=== PATIENT | male | born 1965 | race Caucasian/White ===

== ENCOUNTER 2024-01-18 09:15 | Outpatient (OUT) | payer OTHER, SELFPAY ==
[2024-01-18 10:04] LABS: Alanine Aminotransferase 57 U/L (16-63); Albumin Globulin Ratio 1.3; Albumin Level 3.9 g/dL (3.4-5.0); Alkaline Phosphatase 83 U/L (46-116); Aspartate Amino Transferase 32 U/L (15-37); BUN Creatinine Ratio 13.6; Bilirubin Total 0.7 mg/dL (0.2-1.0); Calcium 9.4 mg/dL (8.5-10.1); Carbon Dioxide 27.2 mmol/L (21.0-32.0); Chloride 104 mmol/L (98-107); Chol HDL Ratio 4.2; Cholesterol 168 mg/dL (<=200); Estimated GFR (African America >60 (>=60); Estimated GFR (Non-African Ame >60 (>=60); Globulin 3.1 g/dL; Glucose 97 mg/dL (74-106); HDL Cholesterol 40 mg/dL (40-60); Potassium 4.2 mmol/L (3.5-5.1); Sodium 141 mmol/L (136-145); Triglycerides 219 mg/dL (<=150); VLDL CHOLESTEROL 43.8 mg/dL
[2024-01-18 10:16] LABS: Prostate Specific Antigen Scrn 1.34 ng/mL (<=4.00)
== END 2024-01-18 09:16 | disposition home or self-care (01) ==
LOC: LAB 09:16
PROVIDERS: PCP Family Medicine; Visit Provider Family Medicine
DX: E78.5 Hyperlipidemia, unspecified (principal); Z12.5 Encounter for screening for malignant neoplasm of prostate
CPT/HCPCS: 36415; 80053; 80061; G0103

== ENCOUNTER 2024-02-01 07:51 | Outpatient (OUT) | payer OTHER, SELFPAY ==
--- NOTE | 2024-02-01 08:32 | CT_ITS ---
The [address] [address] Patient Name: PAT CASTRO MRN: [id number] date: 1965 Sex: M Assigned Patient Location: CT Current Patient Location: Accession/Order Number: [id number] Exam Date: 02/01/2024 08:18 Report Date: 02/02/2024 09:29 At the request of: JOI SANCHEZ Procedure: CT soft tissue neck w con CT soft tissue neck w con, 02/01/2024 8:18 AM EDT INDICATION: Mass Rt side r22.1 COMPARISON: There is no appropriate prior study for comparison. TECHNIQUE: CT imaging of the neck were acquired with contrast. Supplemental 2D reformatted images were generated and reviewed as needed. Dose reduction techniques were achieved by using automated exposure control and/or adjustment of mA and/or kV according to patient size and/or use of iterative reconstruction technique. FINDINGS: No abnormality of the base of skull is noted. The nasopharynx, oropharynx, hypopharynx and oral cavity are unremarkable. The parotids, submandibular glands are unremarkable. The larynx is unremarkable. No abnormality of paraglottic fat is noted. There is no lymph node enlargement by size criteria. No retropharyngeal lymph node is noted. Subcutaneous calcified lesion under the marker measuring approximately 4.4 x 8.1 mm is noted. The thyroid gland is homogeneous. The visualized portions of lungs are unremarkable. There is no suspicious osteolytic or osteoblastic lesion. There are multilevel degenerative changes of cervical spine. CT/CT soft tissue neck w con IMPRESSION: Small calcified subcutaneous lesion under the marker is most likely consistent with a calcified epidermoid cyst versus a calcified lymph node. Electronically authenticated by: ALONDRA DIAL Date: 02/02/2024 09:29
== END 2024-02-01 07:52 | disposition home or self-care (01) ==
LOC: CT 07:52
PROVIDERS: PCP Family Medicine; Visit Provider Family Medicine
DX: R22.1 Localized swelling, mass and lump, neck (principal)
CPT/HCPCS: 70491; Q9967

== ENCOUNTER 2024-03-24 12:21 | Day surgery (SDC) | payer OTHER, SELFPAY ==
--- NOTE | 2024-03-24 | OP_ITS ---
OPERATION DATE: 03/24/2024 SURGEON: Cathryn Ayon M.D. PREOPERATIVE DIAGNOSIS: Right neck mass. POSTOPERATIVE DIAGNOSIS: Right neck mass. PROCEDURE: Removal of right neck mass. ANESTHESIA: General endotracheal. COMPLICATIONS: None. FINDINGS: A 1.5 cm calcified cystic mass of the right mastoid tip. INDICATIONS: This 58-year-old man presented with a right neck mass, suspicious for a pilomatricoma. PROCEDURE: Patient identified in the holding area and taken back to the OR where he was placed in the supine position. After induction of general endotracheal anesthesia, the right neck was prepped and draped in a sterile fashion. A 3 cm elliptical incision was made following relaxed skin lines of tension around the mass and dissection was carried out sharply and with electrocautery, around the mass, down to the level of the sternocleidomastoid muscle. The mass was then removed in its entirety along with an ellipse of skin. Hemostasis was achieved with suction Bovie and the incision was then closed with a deep layer of interrupted 4-0 Vicryl sutures and a running 5-0 nylon stitch. Antibiotic ointment was placed over the incision and the patient was awakened and taken to the recovery room in good condition. QUIANA
--- OUTSIDE RECORDS SUMMARY | 2024-03-24 12:24 | XMS_ITS | CCD ---
Author Organization [facility] Inform ion Partnership [facility] Care Team Providers Care Cigar Making Supervisor Name Role Phone REY SOTELO Attending Unavailable REY SOTELO Admitting Unavailable LAURA, DR MARNIE Chambers Primary Care Unavailable LAURA, DR MARNIE Chambers Primary Care Unavailable LAURA, DR MARNIE Chambers Admitting Unavailable LAURA, DR MARNIE Chambers Attending Unavailable LAURA, DR MARNIE Chambers Consulting Unavailable LAURA, DR MARNIE Chambers Primary Care Unavailable REY SOTELO Attending Unavailable REY SOTELO Admitting Unavailable DON GALLO Consulting Unavailable John Cash Consulting Unavailable STACI KYLE Attending Unavailable MARNIE BURDEN Unavailable Allergies Allergy Classification Reported Allergen(s) Allergy Type Date of Onset Reaction(s) Facility (1 source) cefTRIAXone Drug Allergy 6 [facility] (2 sources) Iodine Drug Allergy 6 rash [facility] (1 source) FLUoxetine Drug Allergy 4 Comment:[facility] Medications Current Medications Medication Drug Class(es) Dates Sig (Normalized) Sig (Original) fenofibrate 145 mg oral tablet (1 source) Peroxisome Proliferator Receptor alpha Agonist Start: 01-14-2024 take 145 mg by mouth once daily Fenofibrate Nanocrystallized Active 145 MG PO Daily January 14, 2024 12:00am simvastatin 20 mg oral tablet (1 source) HMG-CoA Reductase Inhibitor Start: 01-13-2024 take 1 tablet by mouth once daily Simvastatin Active 20 MG PO Daily January 13, 2024 12:00am FreeTextSig: TAKE 1 TABLET DAILY; Note: Source Status: Start; Refills: 3; Qty: 90 Tablet; Provider: Laura Dye ( ) 24 hr venlafaxine 75 mg extended release oral capsule (1 source) Serotonin and Norepinephrine Reuptake Inhibitor Start: 01-13-2024 take 1 capsule by mouth once daily Venlafaxine Active 75 MG PO Daily January 13, 2024 12:00am FreeTextSig: TAKE 1 CAPSULE BY MOUTH EVERY DAY; Note: Source Status: Start; Refills: 17; Qty: 21 Capsule; Provider: Laura Dye ( ) Completed/Discontinued Medications Medication Drug Class(es) Dates Sig (Normalized) Sig (Original) aspirin 81 mg delayed release oral tablet (1 source) Platelet Aggregation Inhibitor, Nonsteroidal Anti-inflammatory Drug Start: 01-13-2024 End: 01-14-2024 Aspirin (Adult Low Dose Aspirin) 81 mg tablet,delayed release (DR/EC) Discontinued 81 MG PO Daily January 13, 2024 12:00am January 14, 2024 2:39pm hyoscyamine sulfate 0.125 mg oral tablet (1 source) Start: 01-13-2024 End: 01-14-2024 take 1 tablet by mouth every four hours as needed Hyoscyamine Sulfate Discontinued 1 TAB PO Every 4 hours January 13, 2024 12:00am January 14, 2024 2:40pm FreeTextSi tablet as needed Orally every 4 hrs; Note: Source Status: Start; Refills: 0; Provider: Laura Chambers meloxicam 15 mg oral tablet (2 sources) Nonsteroidal Anti-inflammatory Drug Start: 01-13-2024 End: 01-14-2024 take 1 tablet by mouth once daily Meloxicam Discontinued 15 MG PO Daily January 14, 2024 2:40pm January 14, 2024 2:57pm FreeTextSig: TAKE 1 TABLET BY MOUTH EVERY DAY; Note: Source Status: Start; Refills: 4; Qty: 21 Tablet; Provider: Laura Dye ( ) Problems Active Problems Problem Classification Problem Date Documented Da te Episodic/Chronic Disorders of lipid metabolism (2 sources) Hyperlipidemia; Translations: [Hyperlipidemia, unspecified] 01-14-2024 Chronic Other screening for suspected conditions (not mental disorders or infectious disease) (3 sources) Encounter for screening for malignant neoplasm of prostate; Translations: [Patient encounter status] Onset: 03-01-2022 01-14-2024 Episodic Other skin disorders (1 source) Mass of neck; Translations: [Localized swelling, mass and lump, neck] 01-14-2024 Episodic Other skin disorders (1 source) Localized swelling, mass and lump, neck; Translations: [Swelling, mass, or lump in head and neck] 01-14-2024 Episodic Past or Other Problems Problem Classification Problem Date Documented Da te Episodic/Chronic Diseases of mouth; excluding dental (1 source) Sialoadenitis, unspecified; Translations: [SIALOADENITIS UNSPECIFIED] Onset: 10-02-2021 Episodic Other skin disorders (3 sources) Localized swelling, mass and lump, head; Translations: [LOCALIZED SWELLING MASS AND LUMP HEAD] Onset: 09-27-2021 Episodic Residual codes; unclassified (4 sources) Procedure and treatment not carried out due to patient leaving prior to being seen by health care provider; Translations: [PROC AND TX NOT CARRIED OUT PT LEAVE] Onset: 09-27-2021 Episodic Results Test Name Value Interpretation Reference Range Facil ity CBC AUTO DIFFon 02-23-2022 BASO # 0.1 103/ul Normal 0.0-0.1 [facility] Comment on above: Performed By: #### C BC #### [facility] [address] [place] [address] Dr. Sara Franco Basophils/100 WBC (Bld) 1.0 % Normal 0.2-2.0 [facility] Comment on above: Performed By: #### C BC #### [facility] [address] [place] [address] Dr. Sara Franco EO # 0.1 103/ul Normal 0.0-0.7 [facility] Comment on above: Performed By: #### C BC #### [facility] [address] [place] [address] Dr. Sara Franco Eosinophils/100 WBC (Bld) 2.0 % Normal 0.9-7.0 [facility] Comment on above: Performed By: #### C BC #### [facility] [address] [place] [address] Dr. Sara Franco Erythrocyte distribution width (RBC) [Ratio] 13.5 % Normal 11.0-15.0 [facility] Comment on above: Performed By: #### C BC #### [facility] [address] [place] [address] Dr. Sara Franco Hematocrit (Bld) [Volume fraction] 45.7 % Normal 42.0-54.0 [facility] Comment on above: Performed By: #### C BC #### [facility] [address] [place] [address] Dr. Sara Franco Hemoglobin (Bld) [Mass/Vol] 15.4 g/dL Normal 14.0-18.0 [facility] Comment on above: Performed By: #### C BC #### [facility] [address] [place] [address] Dr. Sara Franco IG # 0.06 10e3/ul Critically high 0.00-0.03 [facility] Comment on above: Performed By: #### C BC #### [facility] [address] [place] [address] Dr. Sara Franco IG % 1.0 % Critically high 0.0-0.5 [facility] Comment on above: Performed By: #### C BC #### [facility] [address] [place] [address] Dr. Sara Franco LYMPH # 1.6 103/ul Normal 1.2-3.8 [facility] Comment on above: Performed By: #### C BC #### [facility] [address] [place] [address] Dr. Sara Franco Lymphocytes/100 WBC (Bld) 26.2 % Normal 20.5-60.0 [facility] Comment on above: Performed By: #### C BC #### [facility] [address] [place] [address] Dr. Sara Franco MANUAL DIFF REQ NO Normal [facility] Comment on above: Performed By: #### C BC #### [facility] [address] [place] [address] Dr. Sara Franco MCH (RBC) [Entitic mass] 28.5 pg Normal 25.9-34.0 [facility] Comment on above: Performed By: #### C BC #### [facility] [address] [place], [place] [id number] Dr. Sara Franco MCHC (RBC) [Mass/Vol] 33.7 g/dL Normal 29.9-35.2 [facility] Comment on above: Performed By: #### C BC #### [facility] [address] [place] [address] Dr. Sara Franco MCV (RBC) [Entitic vol] 84.5 fL Normal 80.0-94.0 [facility] Comment on above: Performed By: #### C BC #### [facility] [address] [place] [address] Dr. Sara Franco MONO # 0.5 103/ul Normal 0.3-0.8 [facility] Comment on above: Performed By: #### C BC #### [facility] [address] [place] [address] Dr. Sara Franco Monocytes/100 WBC (Bld) 8.7 % Normal 1.7-12.0 [facility] Comment on above: Performed By: #### C BC #### [facility] [address] [place] [address] Dr. Sara Franco NEUT # 3.6 103/ul Normal 1.4-6.5 [facility] Comment on above: Performed By: #### C BC #### [facility] [address] [place] [address] Dr. Sara Franco Neutrophils/100 WBC (Bld) 61.1 % Normal 43.0-75.0 [facility] Comment on above: Performed By: #### C BC #### [facility] [address] [place] [address] Dr. Sara Franco Platelet mean volume (Bld) [Entitic vol] 9.8 fL Normal 9.5-13.5 [facility] Comment on above: Performed By: #### C BC #### [facility] [address] [place] [address] Dr. Sara Franco PLT 281 103/ul Normal 150-450 [facility] Comment on above: Performed By: #### C BC #### [facility] [address] [place] [address] Dr. Sara Franco RBC 5.41 106/ul Normal 4.70-6.10 [facility] Comment on above: Performed By: #### C BC #### [facility] [address] [address] [address] Sara Franco WBC 6.0 103/ul Normal 4.0-11.0 [facility] Comment on above: Performed By: #### C BC #### [facility] [address] [address] [address] Sara Franco LIPID PROFILEon 02-23-2022 CHOL-HDL RATIO NORM SEE BELOW Normal [facility] Comment on above: Result Comment: 3.3 - 4.4 LOW RISK 4.4 - 7.1 AVERAGE RISK 7.1 - 11.0 MODERATE RISK >11.0 HIGH RISK Performed By: #### L IPID, CMP #### [facility] [address] [place] [address] Dr. Sara Franco Cholesterol [Mass/Vol] 191 mg/dL Normal <=200 [facility] Comment on above: Performed By: #### L IPID, CMP #### [facility] [address] [place] [address] Dr. Sara Franco Cholesterol in HDL [Mass/Vol] 42 mg/dL Normal 40-60 [facility] Comment on above: Performed By: #### L IPID, CMP #### [facility] [address] [place] [address] Dr. Sara Franco Cholesterol in LDL [Mass/Vol] 110.4 mg/dL Normal [facility] Comment on above: Performed By: #### L IPID, CMP #### [facility] [address] [address] [address] Sara Franco Cholesterol.total/C holesterol in HDL [Mass ratio] 4.5 {ratio} Normal [facility] Comment on above: Performed By: #### L IPID, CMP #### [facility] [address] [place] [address] Dr. Sara Franco HDL NORMAL > or = 60 mg/dl - LO W CARDIOVASCULAR RISK <40 mg/dl - HIGH CARDIOVASCULAR RISK Normal [facility] Comment on above: Performed By: #### L IPID, CMP #### [facility] [address] [address] [address] Sara Franco LDL CALC NORMAL SEE BELOW Normal [facility] Comment on above: Result Comment: <100 mg/dl OPTIMAL 100 - 129 mg/dl NEAR OR ABOVE OPTIMAL 130 - 159 mg/dl BORDERLINE HIGH 160 - 189 mg/dl HIGH >190 mg/dl VERY HIGH Performed By: #### L IPID, CMP #### [facility] [address] [address] [address] Sara Franco Triglyceride [Mass/Vol] 193 mg/dL Critically high <=150 [facility] Comment on above: Performed By: #### L IPID, CMP #### [facility] [address] [address] [address] Sara Franco VLDL CALC 38.6 mg/dL Normal [facility] Comment on above: Performed By: #### L IPID, CMP #### [facility] [address] [address] [address] Sara Franco PROF 14(COMP METB)on 022 Albumin [Mass/Vol] 4.3 g/dL Normal 3.4-5.0 [facility] Comment on above: Performed By: #### L IPID, CMP #### [facility] [address] [place] [address] Dr. Sara Franco Albumin/Globulin [Mass ratio] 1.3 {ratio} Normal [facility] Comment on above: Performed By: #### L IPID, CMP #### [facility] [address] [place] [address] Dr. Sara Franco ALP [Catalytic activity/Vol] 67 U/L Normal 46-116 [facility] Comment on above: Performed By: #### L IPID, CMP #### [facility] [address] [place] [address] Dr. Sara Franco ALT [Catalytic activity/Vol] 57 U/L Normal 16-63 [facility] Comment on above: Performed By: #### L IPID, CMP #### [facility] [address] [address] [address] Sara Franco Anion gap [Moles/Vol] 12.2 mmol/L Normal [facility] Comment on above: Performed By: #### L IPID, CMP #### [facility] [address] [address] [address] Sara Franco AST [Catalytic activity/Vol] 23 U/L Normal 15-37 [facility] Comment on above: Performed By: #### L IPID, CMP #### [facility] [address] [address] [address] Sara Franco Bilirubin [Mass/Vol] 0.7 mg/dL Normal 0.2-1.0 [facility] Comment on above: Performed By: #### L IPID, CMP #### [facility] [address] [place] [address] Dr. Sara Franco Calcium [Mass/Vol] 9.4 mg/dL Normal 8.5-10.1 [facility] Comment on above: Performed By: #### L IPID, CMP #### [facility] [address] [place] [address] Dr. Sara Fracno Chloride [Moles/Vol] 103 mmol/L Normal 98-107 [facility] Comment on above: Performed By: #### L IPID, CMP #### [facility] [address] [place] [address] Dr. Sara Franco CO2 [Moles/Vol] 30.0 mmol/L Normal 21.0-32.0 [facility] Comment on above: Performed By: #### L IPID, CMP #### [facility] [address] [place] [address] Dr. Sara Franco Creatinine [Mass/Vol] 1.13 mg/dL Normal 0.70-1.30 [facility] Comment on above: Performed By: #### L IPID, CMP #### [facility] [address] [place] [address] Dr. Sara Franco EGFR-AF MOSOTHO >60 Normal >=60 [facility] Comment on above: Performed By: #### L IPID, CMP #### [facility] [address] [address] [address] Sara Franco EGFR-NON AF MOSOTHO >60 Normal >=60 [facility] Comment on above: Performed By: #### L IPID, CMP #### [facility] [address] [address] [address] Sara Franco Globulin (S) [Mass/Vol] 3.3 g/dL Normal [facility] Comment on above: Performed By: #### L IPID, CMP #### [facility] [address] [address] [address] Sara Franco Glucose [Mass/Vol] 101 mg/dL Normal 74-106 [facility] Comment on above: Performed By: #### L IPID, CMP #### [facility] [address] [place] [address] Dr. Sara Franco Potassium [Moles/Vol] 4.2 mmol/L Normal 3.5-5.1 [facility] Comment on above: Performed By: #### L IPID, CMP #### [facility] [address] [place] [address] Dr. Sara Franco Protein [Mass/Vol] 7.6 g/dL Normal 6.4-8.2 [facility] Comment on above: Performed By: #### L IPID, CMP #### [facility] [address] [place] [address] Dr. Sara Franco Sodium [Moles/Vol] 141 mmol/L Normal 136-145 [facility] Comment on above: Performed By: #### L IPID, CMP #### [facility] [address] [place] [address] Dr. Sara Franco Urea nitrogen [Mass/Vol] 20.0 mg/dL Critically high 7.0-18.0 [facility] Comment on above: Performed By: #### L IPID, CMP #### [facility] [address] [place] [address] Dr. Sara Franco Urea nitrogen/Creatinine [Mass ratio] 17.7 mg/mg Normal [facility] Comment on above: Performed By: #### L IPID, CMP #### [facility] [address] [address] [address] Sara Franco CBC AUTO DIFFon 09-27-2021 BASO # 0.1 103/ul Normal 0.0-0.1 [facility] Comment on above: Performed By: #### C BC #### [facility] [address] [address] [address] Sara Franco Basophils/100 WBC (Bld) 0.9 % Normal 0.2-2.0 [facility] Comment on above: Performed By: #### C BC #### [facility] [address] [place] [address] Dr. Sara Franco EO # 0.1 103/ul Normal 0.0-0.7 [facility] Comment on above: Performed By: #### C BC #### [facility] [address] [place] [address] Dr. Sara Franco Eosinophils/100 WBC (Bld) 1.4 % Normal 0.9-7.0 [facility] Comment on above: Performed By: #### C BC #### [facility] [address] [place] [address] Dr. Sara Franco Erythrocyte distribution width (RBC) [Ratio] 13.4 % Normal 11.0-15.0 [facility] Comment on above: Performed By: #### C BC #### [facility] [address] [place] [address] Dr. Sara Franco Hematocrit (Bld) [Volume fraction] 45.1 % Normal 42.0-54.0 [facility] Comment on above: Performed By: #### C BC #### [facility] [address] [place] [address] Dr. Sara Franco Hemoglobin (Bld) [Mass/Vol] 15.3 g/dL Normal 14.0-18.0 [facility] Comment on above: Performed By: #### C BC #### [facility] [address] [place] [address] Dr. Sara Franco IG # 0.04 10e3/ul Critically high 0.00-0.03 [facility] Comment on above: Performed By: #### C BC #### [facility] [address] [place] [address] Dr. Sara Franco IG % 0.4 % Normal 0.0-0.5 [facility] Comment on above: Performed By: #### C BC #### [facility] [address] [place] [address] Dr. Sara Franco LYMPH # 1.3 103/ul Normal 1.2-3.8 [facility] Comment on above: Performed By: #### C BC #### [facility] [address] [place] [address] Dr. Sara Franco Lymphocytes/100 WBC (Bld) 13.3 % Critically low 20.5-60.0 [facility] Comment on above: Performed By: #### C BC #### [facility] [address] [place] [address] Dr. Sara Franco MANUAL DIFF REQ NO Normal [facility] Comment on above: Performed By: #### C BC #### [facility] [address] [place] [address] Dr. Sara Franco MCH (RBC) [Entitic mass] 28.4 pg Normal 25.9-34.0 [facility] Comment on above: Performed By: #### C BC #### [facility] [address] [place] [address] Dr. Sara Franco MCHC (RBC) [Mass/Vol] 33.9 g/dL Normal 29.9-35.2 [facility] Comment on above: Performed By: #### C BC #### [facility] [address] [place] [address] Dr. Sara Franco MCV (RBC) [Entitic vol] 83.8 fL Normal 80.0-94.0 [facility] Comment on above: Performed By: #### C BC #### [facility] [address] [place] [address] Dr. Sara Franco MONO # 0.8 103/ul Normal 0.3-0.8 [facility] Comment on above: Performed By: #### C BC #### [facility] [address] [id number] [address] Sara Franco Monocytes/100 WBC (Bld) 7.7 % Normal 1.7-12.0 [facility] Comment on above: Performed By: #### C BC #### [facility] [address] [address] [address] Sara Franco NEUT # 7.7 103/ul Critically high 1.4-6.5 [facility] Comment on above: Performed By: #### C BC #### [facility] [address] [place] [address] Dr. Sara Franco Neutrophils/100 WBC (Bld) 76.3 % Critically high 43.0-75.0 [facility] Comment on above: Performed By: #### C BC #### [facility] [address] [place] [address] Dr. Sara Franco Platelet mean volume (Bld) [Entitic vol] 9.9 fL Normal 9.5-13.5 [facility] Comment on above: Performed By: #### C BC #### [facility] [address] [place] [address] Dr. Sara Franco PLT 276 103/ul Normal 150-450 [facility] Comment on above: Performed By: #### C BC #### [facility] [address] [place] [address] Dr. Sara Franco RBC 5.38 106/ul Normal 4.70-6.10 [facility] Comment on above: Performed By: #### C BC #### [facility] [address] [place] [address] Dr. Sara Franco WBC 10.0 103/ul Normal 4.0-11.0 [facility] Comment on above: Performed By: #### C BC #### [facility] [address] [place], [place] [id number] Dr. Sara Franco CT FACIAL BONES WO CONon CT FACIAL BONES WO CON EXAMINATION: CT FACIAL BONES WO CON HISTORY: ATYPICAL FACIAL PAIN. COMPARISON: None. TECHNIQUE: CT examination of the facial bones without IV contrast. Coronal and sagittal reformations were performed. Dose reduction techniques were achieved by using automated exposure control and/or adjustment of mA and/or kV according to patient size and/or use of iterative reconstruction technique. FINDINGS: There is asymmetric swelling of the right parotid gland. There is edema throughout the right parotid gland. There is soft tissue edema in the subcutaneous fat overlying the right parotid gland. There is some swelling and edema extending into the right submandibular space. No abscess. No calcified sialolith. Left parotid gland normal. Left submandibular gland normal. Tongue and floor of the mouth normal. Nasopharynx, oropharynx, and retropharyngeal space are normal. Orbital contents are normal. Visualized intracranial contents are unremarkable. The paranasal sinuses are clear. No air-fluid levels. Mastoid air cells and middle ear cavities clear. Skull base intact. IMPRESSION: 1. There is asymmetric swelling and edema throughout the right parotid gland. There is swelling and edema in the subcutaneous fat overlying the right parotid gland. There is some edema and stranding extending into the submandibular space on the right. The findings are most likely related to acute parotiditis on the right. No calcified sialolith. No abscess. 2. The remainder of the maxillofacial structures are unremarkable. Electronically authenticated by: JOHN CASH Date: 2021-09-27 20:53 Normal [facility] PROF CHEM 8 (BAS METB)on Anion gap [Moles/Vol] 14.6 mmol/L Normal [facility] Comment on above: Performed By: #### B MP #### [facility] [address] [place] [address] Dr. Sara Franco Calcium [Mass/Vol] 9.4 mg/dL Normal 8.4-10.2 [facility] Comment on above: Performed By: #### B MP #### [facility] [address] [address] [address] Sara Franco Chloride [Moles/Vol] 101 mmol/L Normal 98-107 [facility] Comment on above: Performed By: #### B MP #### [facility] [address] [place] [address] Dr. Sara Franco CO2 [Moles/Vol] 25.2 mmol/L Normal 22.0-30.0 [facility] Comment on above: Performed By: #### B MP #### [facility] [address] [address] [address] Sara Franco Creatinine [Mass/Vol] 1.39 mg/dL Critically high 0.66-1.25 [facility] Comment on above: Performed By: #### B MP #### [facility] [address] [address] [address] Sara Franco EGFR-AF MOSOTHO >60 Normal >=60 [facility] Comment on above: Performed By: #### B MP #### [facility] [address] [address] [address] Sara Franco EGFR-NON AF MOSOTHO 53 mL/min/1.73m2 Critically low >=60 [facility] Comment on above: Performed By: #### B MP #### [facility] [address] [address] [address] Sara Franco Glucose [Mass/Vol] 132 mg/dL Critically high 74-106 [facility] Comment on above: Performed By: #### B MP #### [facility] [address] [address] [address] Sara Franco Potassium [Moles/Vol] 3.8 mmol/L Normal 3.4-5.0 [facility] Comment on above: Performed By: #### B MP #### [facility] [address] [address] [address] Sara Franco Sodium [Moles/Vol] 137 mmol/L Normal 137-145 [facility] Comment on above: Performed By: #### B MP #### [facility] [address] [address] [address] Sara Franco Urea nitrogen [Mass/Vol] 20.0 mg/dL Normal 9.0-20.0 [facility] Comment on above: Performed By: #### B MP #### [facility] [address] [place] [address] Dr. Sara Franco Urea nitrogen/Creatinine [Mass ratio] 14.4 mg/mg Normal [facility] Comment on above: Performed By: #### B MP #### [facility] [address] [address] [address] Sara Franco Vital Signs Date Time Vital Sign Value Performing Clinician Tiesha herrera 01-14-2024 14:31-0400 Body height 179.07 cm [facility] 01-14-2024 14:31-0400 Body mass index (BMI) [Ratio] 30.4 kg/m2 [facility] 01-14-2024 14:31-0400 Body weight 97.52 kg [facility] 01-14-2024 14:31-0400 Diastolic blood pressure 92 mm[Hg] [facility] 01-14-2024 14:31-0400 Heart rate 97 /min [facility] 01-14-2024 14:31-0400 Systolic blood pressure 132 mm[Hg] [facility] Encounters Encounter Date Encounter Type Care Provider Facility Start: 02-05-2024 End: 02-05-2024 ambulatory STACI KYLE Not Available Start: 01-14-2024 End: 01-14-2024 ambulatory [facility] Work Phone: Start: 01-14-2024 End: 01-14-2024 Patient encounter procedure [facility] Work Phone: Start: 03-01-2022 Encounter for genera l adult medical examination without abnormal findings DR MARNIE BURDEN [facility] Start: 02-23-2022 End: 02-24-[address] MARNIE BURDEN Facility:[facility] Start: 02-23-2022 End: 02-24-2022 Encounter for general adult medical examination without abnormal findings DR MARNIE BURDEN Facility:[facility] Start: 09-27-2021 End: 09-27-[address] MARNIE BURDEN Facility:[facility] Start: 09-27-2021 End: 09-27-2021 ambulatory REY SOTELO Facility:[facility] Procedures Date Procedure Procedure Detail Performing Clinician Start: 02-23-2022 PSA screening REY LITTLE Comment on above: Performed By: #### [facility] #### [facility] [address] [address] [address] Sara Franco Plan of Treatment Date Care Activity Detail Author Start: 04-16-2024 Patient referral [facility] Work Phone: Comprehensive metabo lic 2000 panel - Serum or Plasma [facility] Patient referral [facility] Work Phone: [facility] Immunizations Immunization Date Immunization Notes Care Provider Fa chito 09-01-2021 COVID-19 mRNA, Comir yfn (Pf[facility]) [facility] Payers Date Payer Category Payer Unknown [id number] [id number] [id number] 1965 Unknown [id number] [id number] 1966 Unknown [id number] [id number] [id number] 1966 Unknown [id number] [id number] [id number] 1958 Private Health Insurance [id number] Social History Date Type Detail Facility Tobacco smoking stat [facility] Unknown if ever smoked [facility] Work Phone: Start: 1965 Sex Assigned At Male [facility] Hospital Discharge instructions 01-14-2024 Note Date & Type Note Facility 01-14-2024 Hospital Discharg e instructions Ambulatory OrdersReferral to ENT Time Frame: 01/14/24, Location: None Selected [facility] Work Phone: Evaluation note Note Date & Type Note Facility Evaluation note Diagnosis Onset Date Hyperlipidemia acute Mass of right side of neck a cute Screening PSA (prostate specific antigen) acute [facility] Work Phone: Summary Purpose Family History No Family History Records Found Relationship Condition Age at Onset Recorded Date/T angela father Malignant neoplasm Unknown Unknown Not Specified Unknown sister Diabetes mellitus Unknown Advance Directives No Advanced Directives Records Found Advance Directive Response Recorded Date/ Time Advance Directives No January 13 024 2:22pm Chief Complaint and Reason for Visit Chief Complaint Lump on neck/ Blood Work Reason for Visit Hyperlipidemia Mass of right side of neck Screening PSA (prostate specific antigen) Additional Source Comments (unrecognized sect ion and content) No Status Records FoundNo Status Records Found INFORMATION SOURCE (unrecogn ized section and content) DATE CREATED AUTHOR 03/02/2022 [facility] DATE CREATED AUTHOR AUTHOR'S JUANDANA ARLEN 02/07/2024 [facility] [employer] Care Teams (unrecognized sec tion and content) Team Status: Active Member Role Status Dates Marnie Burden MD Primary Care Provider Active Team Status: Inactive Member Role Status Dates Marnie Burden MD Primary Care Provide r, Attending Provider Active Start: January 14, 2024 End: January 14, 2024 Goals (unrecognized section and content) Goals may be documented in a n alternate section FOR RECORDS PERTAINING TO PATIENTS WHO ARE OR HAVE BEEN ENROLLED IN A CHEMICAL DEPENDENCY/SUBSTANCEABUSE PROGRAM, SOME INFORMATION MAY BE OMITTED. This clinical summary was aggregated from multiple sources. Caution should be exercised in using it in the provision of clinical care. This summary normalizes information from multiple sources, and as a consequence, information in this document may materially change the coding, format and clinical context of patient data. In addition, data may be omitted in some cases. CLINICAL DECISIONS SHOULD BE BASED ON THE PRIMARY CLINICAL RECORDS. [employer] [facility]. provides no warranty or guarantee of the accuracy or completeness of information in this document.
[2024-03-24 12:48] VITALS: BP 117/90; PULSE 80; O2SAT 96
[2024-03-24 12:51] VITALS: BP 121/84; PULSE 80; O2SAT 6
[2024-03-24] MEDS: LIDOCAINE HCL 1%-EPINEPHRINE 1:100,000 20 ML MDV 4 ML INJ (13:00)
[2024-03-24] MEDS: BACITRACIN OINTMENT 28.4 GM TUBE 1 APPLIC TOPICAL (13:15)
== END 2024-03-24 13:35 | disposition home or self-care (01) ==
PROVIDERS: PCP Family Medicine; Visit Provider Otolaryngology
PROC: (CPT 21556; principal; 2024-03-24 13:30)
DX: D23.4 Other benign neoplasm of skin of scalp and neck (principal)
CPT/HCPCS: 21556; 88305

== ENCOUNTER 2025-03-06 09:05 | Outpatient (OUT) | payer OTHER, SELFPAY ==
--- OUTSIDE RECORDS SUMMARY | 2025-03-06 09:10 | XMS_ITS | CCD ---
Author Organization [facility] Care Team Providers Care Operations Research Analyst Name Role Phone REY SOTELO Attending Unavailable [...] [employer] Unavailable John Cash Consulting Unavailable MD Cathryn Kyle Jr Attending Provider Cathryn Quijano Jr Attending Unavailable Cathryn Kyle Jr Admitting Unavailable Marnie Sanchez MD Primary Care Provider CATHRYN KYLE Attending Unavailable MANRIE SANCHEZ Referring Unavailable CATHRYN KYLE Attending Unavailable IRENE PALMER Attending Unavailable CATHRYN KYLE Attending Unavailable Allergies Allergy Classification Reported Allergen(s) Allergy Type Date of Onset Reaction(s) Facility Iodine (and Iodine containting drugs) (1 source) Iodine Drug Allergy 4 [facility] Serotonin Reuptake Inhibitors (SSRIs) (1 source) FLUoxetine Drug Allergy 4 Comment:[facility] (1 source) cefTRIAXone Drug Allergy [address] [facility] (3 sources) Iodine Drug Allergy 6 rash [facility] (6 sources) FLUoxetine; Translations: [fluoxetine] Drug Allergy [address] [facility] (1 source) Iodine Drug Allergy [address] [facility] Rep[facility] (5 sources) Iodine Drug Allergy 9 [facility] Medications Current Medications Medication Drug Class(es) Dates Sig (Normalized) Sig (Original) FLUoxetine 20 mg oral capsule (2 sources) Serotonin Reuptake Inhibitor take 1 capsule by mouth once daily FLUoxetine (PROzac) 20 MG capsule Take 20 mg by mouth Daily Active simvastatin 40 mg oral tablet (11 sources) HMG-CoA Reductase Inhibitor Start: 03-04-2025 take 1 tablet by mouth once daily Simvastatin 40 mg tablet Active 40 MG PO Daily March 04, 2025 12:00am Start: 01-13-2024 End: 01-15-2025 take 1 tablet by mouth once daily Simvastatin 20 mg tablet Discontinued 20 MG PO Daily July 21, 2024 9:52pm January 15, 2025 8:39am 24 hr venlafaxine 75 mg extended release oral capsule (5 sources) Serotonin and Norepinephrine Reuptake Inhibitor Start: 10-28-2024 take 1 capsule by mouth once daily Venlafaxine 75 mg capsule,extended release 24hr Active 75 MG PO Daily October 28, 2024 12:40pm Start: 04-06-2024 End: 10-28-2024 take 1 capsule by mouth once daily Venlafaxine 75 mg capsule,extended release 24hr Discontinued 0 .ROUTE .COMPLEX April 06, 2024 8:34am October 28, 2024 12:41pm TAKE 1 CAPSULE BY MOUTH EVERY DAY Start: 01-13-2024 End: 04-06-2024 take 1 capsule by mouth once daily Venlafaxine 75 mg capsule,extended release 24hr Discontinued 75 MG PO Daily January 13, 2024 12:00am April 06, 2024 8:34am FreeTextSig: TAKE 1 CAPSULE BY MOUTH EVERY DAY; Note: Source Status: Start; Refills: 17; Qty: 21 Capsule; Provider: Laura Dye ( ) Completed/Discontinued Medications Medication Drug Class(es) Dates Sig (Normalized) Sig (Original) aspirin 81 mg delayed release oral tablet (3 sources) Platelet Aggregation Inhibitor, Nonsteroidal Anti-inflammatory Drug Start: 01-13-2024 End: 01-14-2024 Aspirin (Adult Low Dose Aspirin) 81 mg tablet,delayed release (DR/EC) Discontinued 81 MG PO Daily January 13, 2024 12:00am January 14, 2024 2:39pm fenofibrate 145 mg oral tablet (15 sources) Peroxisome Proliferator Receptor alpha Agonist Start: 01-14-2024 End: 07-21-2024 take 1 tablet by mouth once daily Fenofibrate Nanocrystallized 145 mg tablet Discontinued 145 MG PO Daily July 21, 2024 9:50pm July 21, 2024 9:52pm hyoscyamine sulfate 0.125 mg oral tablet (3 sources) Start: 01-13-2024 End: 01-14-2024 take 1 tablet by mouth every four hours as needed Hyoscyamine Sulfate 0.125 mg tablet Discontinued 1 TAB PO Every 4 hours January 13, 2024 12:00am January 14, 2024 2:40pm FreeTextSi tablet as needed Orally every 4 hrs; Note: Source Status: Start; Refills: 0; Provider: Larua Chambers meloxicam 15 mg oral tablet (11 sources) Nonsteroidal Anti-inflammatory Drug Start: 05-02-2023 End: 07-29-2024 take 1 tablet by mouth once daily Meloxicam 15 mg tablet Discontinued 15 MG PO Daily January 14, 2024 2:40pm January 14, 2024 2:57pm FreeTextSig: TAKE 1 TABLET BY MOUTH EVERY DAY; Note: Source Status: Start; Refills: 4; Qty: 21 Tablet; Provider: Laura Dye ( ) Problems Active Problems Problem Classification Problem Date Documented Date Episodic/Chronic Disorders of lipid metabolism (11 sources) Hyperlipidemia; Translations: [Hyperlipidemia, unspecified] Onset: 01-31-2024 01-14-2024 Chronic Other ear and sense organ disorders (1 source) Sensorineural hearing loss, bilateral; Translations: [Sensorineural hearing loss, bilateral] 06-24-2024 Chronic Other ear and sense organ disorders (3 sources) Bilateral tinnitus; Translations: [Tinnitus, bilateral] 07-29-2024 Episodic Other non-traumatic joint disorders (5 sources) Derangement of right shoulder joint; Translations: [Other specific joint derangements of right shoulder, not elsewhere classified] Onset: 01-31-2024 01-31-2024 Chronic Other screening for suspected conditions (not mental disorders or infectious disease) (7 sources) Encounter for screening for malignant neoplasm of prostate; Translations: [Patient encounter status] Onset: 03-01-2022 01-14-2024 Episodic Other skin disorders (8 sources) Mass of neck; Translations: [Localized swelling, mass and lump, neck] Onset: 01-31-2024 01-14-2024 Episodic Other skin disorders (2 sources) Localized swelling, mass and lump, neck; Translations: [Swelling, mass, or lump in head and neck] 01-14-2024 Episodic Residual codes; unclassified (5 sources) Obstructive sleep apnea syndrome; Translations: [Obstructive sleep apnea (adult) (pediatric)] Onset: 01-31-2024 01-31-2024 Chronic Past or Other Problems Problem Classification Problem [...] Results Test Name Value Interpretation Reference Range Facility Auditory function testson Bilateral Moderate to severe sensorineural hearing loss from 3K Hz - 4K Hz rising to moderate sensorineural hearing loss above 4K Hz [facility] Zhen 03-24-2024 L Specimen: [id number] Received: 03/25/24 Status: MARA Barrett Num: [id number] Spec Type: Surgical Subm Dr: CATHRYN KYLE MD Tissues: A Soft Tissue/Surgical Margin-Other than Tumor,Mass,Lip or Eli (RT NECK MASS) Procedures: HE, Gross/Micro L4 Age/ Patient Sex Location Account Attending Physician Nacho Elizalde 58/M LABELL [id number] CATHRYN KYLE MD SPEC NUM: [id number] RECD: 03/25/24 STATUS: MARA BARRETT NUM: [id number] SERENA: 03/24/[address]: CATHRYN KYLE MD ENTERED: 03/25/[address]: Rodger,Lab SPEC TYPE: Surgical DEPT: DARREN GALAVIZ ORDERED: HE, Gross/Micro L4 ORDERED: HE, Gross/Micro L4 Pathological Diagnosis Mass, right neck, excision: Pilomatricoma. Clinical Information Right neck cyst Gross Description Received in formalin labeled with the patient's name, date of and right neck mass is a 1.0 x 0.9 x 0.6 cm firm umana-yellow nodule with overlying umana unremarkable skin. The specimen is inked green along its resection margin and sectioned to reveal an intact cyst filled with semisolid, crusted pale yellow contents measuring 1.0 x 0.6 cm. Heatset Winder Operator sections are submitted in A1 following decalcification. CPT Codes 38939 Specimen: [id number] Received: 03/25/24 Status: MARA Barrett Num: [id number] Spec Type: Surgical Subm Dr: CATHRYN KYLE MD Tissues: A Soft Tissue/Surgical Margin-Other than Tumor,Mass,Lip or Eil (RT NECK MASS) Procedures: Tg GONZALEZ/Micro L4 Patient: Nacho Elizalde [id number] (Continued) Signed (signatur e on file) Nuha Sweeney MD 03/26/24 1528 Normal [facility] Cholesterol in LDL Calc [Mas s/Vol]on 01-18-2024 Cholesterol in LDL [Mass/Vol] 85.0 mg/dL [facility] Comment on above: <100 mg/dl [id number] 0-129 mg/dl NEAR OR ABOVE [id number] mg/dl BORDERLINE [id number] mg/dl HIGH>190 mg/dl VERY HIGH Cholesterol in VLDL Calc [Ma ss/Vol]on 01-18-2024 Cholesterol in VLDL [Mass/Vol] 43.8 mg/dL [facility] Estimated glomerular filtrat ion rate (GFR) non- Americanon 01-18-2024 GFR/1.73 sq M.predicted among non-blacks MDRD (S/P/Bld) [Vol rate/Area] mL/min/{1.73_m2} >=60 [facility] Globulin Calc (S) [Mass/Vol] on 01-18-2024 Globulin (S) [Mass/Vol] 3.1 g/dL [facility] Laboratory - Chemistry and C hemistry - challengeon 01-18-2024 Albumin [Mass/Vol] 3.9 g/dL 3.4-5.[address] [facility] ALP [Catalytic activity/Vol] 83 U/L 46-116 [facility] ALT [Catalytic activity/Vol] 57 U/L 16-63 [facility] AST [Catalytic activity/Vol] 32 U/L 15-37 [facility] Bilirubin [Mass/Vol] 0.7 mg/dL 0.2-1.0 [facility] Calcium [Mass/Vol] 9.4 mg/dL 8.5-10.[address] [facility] Chloride [Moles/Vol] 104 mmol/L 98-107 [facility] Cholesterol [Mass/Vol] 168 mg/dL <=200 [facility] Cholesterol in HDL [Mass/Vol] 40 mg/dL 40-60 [facility] Comment on above: > or =60 mg/dl - LOW CARDIOVASCULAR RISK<40 mg/dl - HIGH CARDIOVASCULAR RISK CO2 [Moles/Vol] 27.2 mmol/L 21.0-32.0 [facility] Creatinine [Mass/Vol] 1.10 mg/dL 0.70-1.30 [facility] GFR/1.73 sq M.predicted MDRD (S/P/Bld) [Vol rate/Area] mL/min/{1.73_m2} >=60 [facility] Glucose [Mass/Vol] 97 mg/dL 74-[address] [facility] Potassium [Moles/Vol] 4.2 mmol/L 3.5-5.1 [facility] Protein [Mass/Vol] 7.0 g/dL 6.4-8.[address] [facility] Sodium [Moles/Vol] 141 mmol/L 136-[address] [facility] Triglyceride [Mass/Vol] 219 mg/dL High <=150 [facility] Urea nitrogen [Mass/Vol] 15.0 mg/dL 7.0-18.0 [facility] Urea nitrogen/Creatinine [Mass ratio] 13.6 mg/mg [facility] No Panel Informationon 01-17 Prostate Specific Antigen Screen 1.34 ng/mL <=4.00 [facility] Serum or plasma albumin/glob ulin mass ratioon 01-18-2024 Albumin/Globulin [Mass ratio] 1.3 {ratio} [facility] Serum or plasma anion gap de terminationon 01-18-2024 Anion gap [Moles/Vol] 14.0 mmol/L [facility] Serum or plasma total choles terol/high density lipoprotein (HDL) cholesterol mass jose a 01-18-2024 Cholesterol.total/Cho lesterol in HDL [Mass ratio] 4.2 {ratio} [facility] Comment on above: 3.3 - 4.4 LOW RISK4. 4 - 7.1 AVERAGE RISK7.1 - 11.0 MODERATE RISK>11.0 HIGH RISK CBC AUTO DIFFon 02-23-2022 BASO # 0.1 103/ul Normal 0.0-0.1 [facility] Comment on above: Performed By: #### C BC #### [facility] [address] [address] [address] Sara Franco Basophils/100 WBC (Bld) 1.0 % Normal 0.2-2.0 [facility] Comment on above: Performed By: #### C BC #### [facility] [address] [place] [address] Dr. Sara Franco EO # 0.1 103/ul Normal 0.0-0.7 [facility] Comment on above: Performed By: #### C BC #### [facility] [address] [place] [address] Dr. Sara Franco Eosinophils/100 WBC (Bld) 2.0 % Normal 0.9-7.0 [facility] Comment on above: Performed By: #### C BC #### [facility] [address] [place] [address] Dr. Sara Franco Erythrocyte distribution width (RBC) [Ratio] 13.5 % Normal 11.0-15.0 [facility] Comment on above: Performed By: #### C BC #### [facility] [address] [place] [address] Dr. Sara Franco Hematocrit (Bld) [Volume fraction] 45.7 % Normal 42.0-54.0 [facility] Comment on above: Performed By: #### C BC #### [facility] [address] [place] [address] Dr. Sara Franco Hemoglobin (Bld) [Mass/Vol] 15.4 g/dL Normal 14.0-18.0 [facility] Comment on above: Performed By: #### C BC #### [facility] [address] [place] [address] Dr. Sara Franco IG # 0.06 10e3/ul Critically high 0.00-0.03 [facility] Comment on above: Performed By: #### C BC #### [facility] [address] [place] [address] Dr. Sara Franco IG % 1.0 % Critically high 0.0-0.5 [facility] Comment on above: Performed By: #### C BC #### [facility] [address] [place] [address] Dr. Sara Franco LYMPH # 1.6 103/ul Normal 1.2-3.[address] [facility] Comment on above: Performed By: #### C BC #### [facility] [address] [place] [address] Dr. Sara Franco Lymphocytes/100 WBC (Bld) 26.2 % Normal 20.5-60.0 [facility] Comment on above: Performed By: #### C BC #### [facility] [address] [place] [address] Dr. Sara Franco MANUAL DIFF REQ NO Normal [facility] Comment on above: Performed By: #### C BC #### [facility] [address] [place] [address] Dr. Sara Franco MCH (RBC) [Entitic mass] 28.5 pg Normal 25.9-34.0 [facility] Comment on above: Performed By: #### C BC #### [facility] [address] [place] [address] Dr. Sara Franco MCHC (RBC) [Mass/Vol] 33.7 g/dL Normal 29.9-35.[address] [facility] Comment on above: Performed By: #### C BC #### [facility] [address] [place] [address] Dr. Sara Franco MCV (RBC) [Entitic vol] 84.5 fL Normal 80.0-94.[address] [facility] Comment on above: Performed By: #### C BC #### [facility] [address] [place] [address] Dr. Sara Franco MONO # 0.5 103/ul Normal 0.3-0.[address] [facility] Comment on above: Performed By: #### C BC #### [facility] [id number] Sara Franco Monocytes/100 WBC (Bld) 8.7 % Normal 1.7-12.0 [facility] Comment on above: Performed By: #### C BC #### [facility] [address] [address] [address] Sara Franco NEUT # 3.6 103/ul Normal 1.4-6.5 [facility] Comment on above: Performed By: #### C BC #### [facility] [address] [place] [address] Dr. Sara rFanco Neutrophils/100 WBC (Bld) 61.1 % Normal 43.0-75.0 [facility] Comment on above: Performed By: #### C BC #### [facility] [address] [place] [address] Dr. Sara Franco Platelet mean volume (Bld) [Entitic vol] 9.8 fL Normal 9.5-13.[address] [facility] Comment on above: Performed By: #### C BC #### [facility] [address] [place] [address] Dr. Sara Franco PLT 281 103/ul Normal 150-450 [facility] Comment on above: Performed By: #### C BC #### [facility] [address] [place] [address] Dr. Sara Franco RBC 5.41 106/ul Normal 4.70-6.[address] [facility] Comment on above: Performed By: #### C BC #### [facility] [address] [place] [address] Dr. Sara Franco WBC 6.0 103/ul Normal 4.0-11.[address] [facility] Comment on above: Performed By: #### C BC #### [facility] [address] [place], [place] [id number] Dr. Sara Franco LIPID PROFILEon 02-23-2022 CHOL-HDL RATIO NORM SEE BELOW Normal [facility] Comment on above: Result Comment: 3.3 - 4.4 LOW RISK 4.4 - 7.1 AVERAGE RISK 7.1 - 11.0 MODERATE RISK >11.0 HIGH RISK Performed By: #### L IPID, CMP #### [facility] [address] [address] [address] Sara Franco Cholesterol [Mass/Vol] 191 mg/dL Normal <=200 [facility] Comment on above: Performed By: #### L IPID, CMP #### [facility] [address] [address] [address] Sara Franco Cholesterol in HDL [Mass/Vol] 42 mg/dL Normal 40-60 [facility] Comment on above: Performed By: #### L IPID, CMP #### [facility] [address] [address] [address] Sara Franco Cholesterol in LDL [Mass/Vol] 110.4 mg/dL Normal [facility] Comment on above: Performed By: #### L IPID, CMP #### [facility] [address] [address] [address] Sara Franco Cholesterol.total/Cho lesterol in HDL [Mass ratio] 4.5 {ratio} Normal [facility] Comment on above: Performed By: #### L IPID, CMP #### [facility] [address] [address] [address] Sara Franco HDL NORMAL > or = 60 mg/dl - LOW CARDIOVASCULAR RISK <40 mg/dl - HIGH CARDIOVASCULAR RISK Normal [facility] Comment on above: Performed By: #### L IPID, CMP #### [facility] [address] [address] [address] Sara Franco LDL CALC NORMAL SEE BELOW Normal [facility] Comment on above: Result Comment: <100 mg/dl OPTIMAL 100 - 129 mg/dl NEAR OR ABOVE OPTIMAL 130 - 159 mg/dl BORDERLINE HIGH 160 - 189 mg/dl HIGH >190 mg/dl VERY HIGH Performed By: #### L IPID, CMP #### [facility] [address] [address] [address] Sara Franco Triglyceride [Mass/Vol] 193 mg/dL Critically high <=150 [facility] Comment on above: Performed By: #### L IPID, CMP #### [facility] [address] [address] [address] Sara Franco VLDL CALC 38.6 mg/dL Normal [facility] Comment on above: Performed By: #### L IPID, CMP #### [facility] [address] [place] [address] Dr. Sara Franco PROF 14(COMP METB)on 022 Albumin [Mass/Vol] 4.3 g/dL Normal 3.4-5.0 [facility] Comment on above: Performed By: #### L IPID, CMP #### [facility] [address] [place] [address] Dr. Sara Franco Albumin/Globulin [Mass ratio] 1.3 {ratio} Normal [facility] Comment on above: Performed By: #### L IPID, CMP #### [facility] [address] [place] [address] Dr. Sara Franco ALP [Catalytic activity/Vol] 67 U/L Normal 46-116 [facility] Comment on above: Performed By: #### L IPID, CMP #### [facility] [address] [place] [address] Dr. Sara Franco ALT [Catalytic activity/Vol] 57 U/L Normal 16-63 [facility] Comment on above: Performed By: #### L IPID, CMP #### [facility] [address] [place] [address] Dr. Sara Franco Anion gap [Moles/Vol] 12.2 mmol/L Normal [facility] Comment on above: Performed By: #### L IPID, CMP #### [facility] [address] [place] [address] Dr. Sara Franco AST [Catalytic activity/Vol] 23 U/L Normal 15-37 [facility] Comment on above: Performed By: #### L IPID, CMP #### [facility] [address] [place] [address] Dr. Sara Franco Bilirubin [Mass/Vol] 0.7 mg/dL Normal 0.2-1.0 [facility] Comment on above: Performed By: #### L IPID, CMP #### [facility] [address] [address] [address] Sara Franco Calcium [Mass/Vol] 9.4 mg/dL Normal 8.5-10.1 [facility] Comment on above: Performed By: #### L IPID, CMP #### [facility] [address] [address] [address] Sara Franco Chloride [Moles/Vol] 103 mmol/L Normal 98-[address] [facility] Comment on above: Performed By: #### L IPID, CMP #### [facility] [address] [place] [address] Dr. Sara Franco CO2 [Moles/Vol] 30.0 mmol/L Normal 21.0-32.0 [facility] Comment on above: Performed By: #### L IPID, CMP #### [facility] [address] [place] [address] Dr. Sara Franco Creatinine [Mass/Vol] 1.13 mg/dL Normal 0.70-1.30 [facility] Comment on above: Performed By: #### L IPID, CMP #### [facility] [address] [place] [address] Dr. Sara Franco EGFR-AF MONEGASQUE >60 Normal >=60 [facility] Comment on above: Performed By: #### L IPID, CMP #### [facility] [address] [place] [address] Dr. Sara Franco EGFR-NON AF MONEGASQUE >60 Normal >=[address] [facility] Comment on above: Performed By: #### L IPID, CMP #### [facility] [address] [place] [address] Dr. Sara Franco Globulin (S) [Mass/Vol] 3.3 g/dL Normal [facility] Comment on above: Performed By: #### L IPID, CMP #### [facility] [address] [place] [address] Dr. Sara Franco Glucose [Mass/Vol] 101 mg/dL Normal 74-106 [facility] Comment on above: Performed By: #### L IPID, CMP #### [facility] [address] [place] [address] Dr. Sara Franco Potassium [Moles/Vol] 4.2 mmol/L Normal 3.5-5.1 [facility] Comment on above: Performed By: #### L IPID, CMP #### [facility] [address] [place] [address] Dr. Sara Franco Protein [Mass/Vol] 7.6 g/dL Normal 6.4-8.2 [facility] Comment on above: Performed By: #### L IPID, CMP #### [facility] [address] [place] [address] Dr. Sara Franco Sodium [Moles/Vol] 141 mmol/L Normal 136-145 [facility] Comment on above: Performed By: #### L IPID, CMP #### [facility] [address] [place] [address] Dr. Sara Franco Urea nitrogen [Mass/Vol] 20.0 mg/dL Critically high 7.0-18.0 [facility] Comment on above: Performed By: #### L IPID, CMP #### [facility] [address] [place] [address] Dr. Sara Franco Urea nitrogen/Creatinine [Mass ratio] 17.7 mg/mg Normal [facility] Comment on above: Performed By: #### L IPID, CMP #### [facility] [address] [place] [address] Dr. Sara Franco CBC AUTO DIFFon 09-27-2021 BASO # 0.1 103/ul Normal 0.0-0.1 [facility] Comment on above: Performed By: #### C BC #### [facility] [address] [place] [address] Dr. Sara Franco Basophils/100 WBC (Bld) 0.9 % Normal 0.2-2.[address] [facility] Comment on above: Performed By: #### C BC #### [facility] [address] [place] [address] Dr. Sara Franco EO # 0.1 103/ul Normal 0.0-0.7 [facility] Comment on above: Performed By: #### C BC #### [facility] [address] [place] [address] Dr. Sara Franco Eosinophils/100 WBC (Bld) 1.4 % Normal 0.9-7.0 [facility] Comment on above: Performed By: #### C BC #### [facility] [address] [place] [address] Dr. Sara Franco Erythrocyte distribution width (RBC) [Ratio] 13.4 % Normal 11.0-15.0 [facility] Comment on above: Performed By: #### C BC #### [facility] [address] [place] [address] Dr. Sara Franco Hematocrit (Bld) [Volume fraction] 45.1 % Normal 42.0-54.0 [facility] Comment on above: Performed By: #### C BC #### [facility] [address] [place] [address] Dr. Sara Franco Hemoglobin (Bld) [Mass/Vol] 15.3 g/dL Normal 14.0-18.0 [facility] Comment on above: Performed By: #### C BC #### [facility] [address] [place] [address] Dr. Sara Franco IG # 0.04 10e3/ul Critically high 0.00-0.03 [facility] Comment on above: Performed By: #### C BC #### [facility] [address] [place] [address] Dr. Sara Franco IG % 0.4 % Normal 0.0-0.5 [facility] Comment on above: Performed By: #### C BC #### [facility] [address] [place] [address] Dr. Sara Franco LYMPH # 1.3 103/ul Normal 1.2-3.8 [facility] Comment on above: Performed By: #### C BC #### [facility] [address] [place] [address] Dr. Sara Franco Lymphocytes/100 WBC (Bld) 13.3 % Critically low 20.5-60.0 [facility] Comment on above: Performed By: #### C BC #### [facility] [address] [place] [address] Dr. Sara Franco MANUAL DIFF REQ NO Normal [facility] Comment on above: Performed By: #### C BC #### [facility] [address] [place] [address] Dr. Sara Franco MCH (RBC) [Entitic mass] 28.4 pg Normal 25.9-34.0 [facility] Comment on above: Performed By: #### C BC #### [facility] [address] [place] [address] Dr. Sara Franco MCHC (RBC) [Mass/Vol] 33.9 g/dL Normal 29.9-35.2 [facility] Comment on above: Performed By: #### C BC #### [facility] [address] [place] [address] Dr. Sara Franco MCV (RBC) [Entitic vol] 83.8 fL Normal 80.0-94.0 [facility] Comment on above: Performed By: #### C BC #### [facility] [address] [place] [address] Dr. Sara Franco MONO # 0.8 103/ul Normal 0.3-0.8 [facility] Comment on above: Performed By: #### C BC #### [facility] [address] [place] [address] Dr. Sara Franco Monocytes/100 WBC (Bld) 7.7 % Normal 1.7-12.[address] [facility] Comment on above: Performed By: #### C BC #### [facility] [address] [place] [address] Dr. Sara Franco NEUT # 7.7 103/ul Critically high 1.4-6.5 [facility] Comment on above: Performed By: #### C BC #### [facility] [address] [place] [address] Dr. Sara Franco Neutrophils/100 WBC (Bld) 76.3 % Critically high 43.0-75.[address] [facility] Comment on above: Performed By: #### C BC #### [facility] [address] [address] [address] Sara Franco Platelet mean volume (Bld) [Entitic vol] 9.9 fL Normal 9.5-13.5 [facility] Comment on above: Performed By: #### C BC #### [facility] [address] [address] [address] Sara Franco PLT 276 103/ul Normal 150-[address] [facility] Comment on above: Performed By: #### C BC #### [facility] [address] [place] [address] Dr. Sara Franco RBC 5.38 106/ul Normal 4.70-6.[address] [facility] Comment on above: Performed By: #### C BC #### [facility] [address] [place] [address] Dr. Sara Franco WBC 10.0 103/ul Normal 4.0-11.[address] [facility] Comment on above: Performed By: #### C BC #### [facility] [address] [place] [address] FACIAL BONES WO [...] JOHN CASH Date: 2021-09-27 20:[address] [facility] PROF CHEM 8 (BAS METB)on Anion gap [Moles/Vol] 14.6 mmol/L [facility] Comment on above: Performed By: #### B MP #### [facility] [address] [address] [address] Sara Franco Calcium [Mass/Vol] 9.4 mg/dL Normal 8.4-10.2 [facility] Comment on above: Performed By: #### B MP #### [facility] [address] [address] [address] Sara Franco Chloride [Moles/Vol] 101 mmol/L Normal 98-107 [facility] Comment on above: Performed By: #### B MP #### [facility] [address] [address] [address] Sara Franco CO2 [Moles/Vol] 25.2 mmol/L Normal 22.0-30.0 [facility] Comment on above: Performed By: #### B MP #### [facility] [address] [address] [address] Sara Franco Creatinine [Mass/Vol] 1.39 mg/dL Critically high 0.66-1.25 [facility] Comment on above: Performed By: #### B MP #### [facility] [address] [address] [address] Sara Franco EGFR-AF MONEGASQUE >60 Normal >=60 [facility] Comment on above: Performed By: #### B MP #### [facility] [address] [address] [address] Sara Franco EGFR-NON AF MONEGASQUE 53 mL/min/1.73m2 Critically low >=60 [facility] Comment on above: Performed By: #### B MP #### [facility] [address] [address] [address] Sara Franco Glucose [Mass/Vol] 132 mg/dL Critically high 74-106 [facility] Comment on above: Performed By: #### B MP #### [facility] [address] [address] [address] Sara Franoc Potassium [Moles/Vol] 3.8 mmol/L Normal 3.4-5.0 [facility] Comment on above: Performed By: #### B MP #### [facility] [address] [address] [address] Sara Franco Sodium [Moles/Vol] 137 mmol/L Normal 137-145 [facility] Comment on above: Performed By: #### B MP #### [facility] [address] [address] [address] Sara Franco Urea nitrogen [Mass/Vol] 20.0 mg/dL Normal 9.0-20.0 [facility] Comment on above: Performed By: #### B MP #### [facility] [address] [address] [address] Sara Franco Urea nitrogen/Creatinine [Mass ratio] 14.4 mg/mg Normal [facility] Comment on above: Performed By: #### B MP #### [facility] [address] [address] [address] Sara Franco Vital Signs Date Time Vital Sign Value Performing Clinician Tiesha herrera 03-04-2025 14: Body height 181.61 cm [facility] 03-04-2025 14:040 Body mass index (BMI) [Ratio] 29 kg/m2 [facility] 03-04-2025 14: Body weight 95.7 kg [facility] 03-04-2025 14:040 Diastolic blood pressure 86 mm[Hg] [facility] 03-04-2025 14: Heart rate 83 /min [facility] 03-04-2025 14:040 Systolic blood pressure 127 mm[Hg] [facility] 07-29-2024 14:23-0400 Body height 181.6 cm Cathryn Kyle MD Work Phone: [facility] 07-29-2024 14:23-0400 Body mass index (BMI) [Ratio] 28.19 kg/m2 Cathryn Kyle MD Work Phone: [facility] 07-29-2024 14:23-0400 Body weight 92.99 kg Cathryn Kyle MD Work Phone: [facility] 07-29-2024 14:23-0400 Diastolic blood pressure 76 mm[Hg] Cathryn Kyle MD Work Phone: [facility] 07-29-2024 14:23-0400 Systolic blood pressure 122 mm[Hg] Cathryn Kyle MD Work Phone: [facility] 01-14-2024 14:31-0400 Body height 179.07 cm [facility] 01-14-2024 14:31-0400 Body mass index (BMI) [Ratio] 30.4 kg/m2 [facility] 01-14-2024 14:31-0400 Body weight 97.52 kg [facility] 01-14-2024 14:31-0400 Diastolic blood pressure 92 mm[Hg] [facility] 01-14-2024 14:31-0400 Heart rate 97 /min [facility] 01-14-2024 14:31-0400 Systolic blood pressure 132 mm[Hg] [facility] Encounters Encounter Date Encounter Type Care Provider Facility Start: 03-04-2025 Physical examination [facility] Start: 03-04-2025 End: 03-04-2025 ambulatory [facility] Work Phone: Start: 03-04-2025 End: 03-04-2025 Encounter for general adult medical examination without abnormal findings [facility] Start: 03-04-2025 End: 03-04-2025 Patient encounter procedure [facility] Work Phone: Start: 07-29-2024 End: 07-29-2024 Office outpatient visit 15 minutes Cathryn Kyle MD Work Phone: [facility] Comment on above: Bilateral tinnitus ( Primary Dx) Start: 07-29-2024 End: 07-29-2024 ambulatory CATHRYN KYLE Not Available Start: 07-29-2024 End: 07-29-2024 Bamboo flowsheet Cathryn Kyle MD Work Phone: [facility] Start: 07-29-2024 End: 07-29-2024 Bamboo flowsheet Cathryn Kyle MD Work Phone: [facility] Start: 06-24-2024 End: 06-24-2024 ambulatory IRENE PALMER [facility] Comment on above: Sensorineural hearin g loss (SNHL) of both ears (Primary Dx); Tinnitus, bilateral Start: 06-24-2024 End: 06-24-[address] Spencer CCC-A Work Phone: [facility] Start: 06-24-2024 End: 06-24-[address] [place] CCC-A Work Phone: [facility] Start: 04-01-2024 End: 04-01-2024 ambulatory CATHRYN Ruy JERRIJAYDECassius Not Available Start: 03-24-2024 End: 03-24-2024 ambulatory Cathryn Kyle [facility] Work Phone: Start: 03-24-2024 End: 03-24-2024 Departed Referred MD Cathryn Kyle [facility] Start: 02-05-2024 End: 02-05-2024 ambulatory CATHRYN Ruy KYLE Not Available Start: 01-18-2024 Non-patient / Non-visit MD [facility] Work Phone: Start: 01-14-2024 End: 01-14-2024 ambulatory [facility] Work Phone: Start: 01-14-2024 End: 01-14-2024 Patient encounter procedure [facility] Work Phone: Start: 03-01-2022 Encounter for genera l adult medical examination without abnormal findings DR MARNIE SANCHEZ [facility] Start: 02-23-2022 End: 02-24-[address] MARNIE SANCHEZ Facility:[facility] Start: 02-23-2022 End: 02-24-2022 Encounter for general adult medical examination without abnormal findings DR MARNIE SANCHEZ Facility:[facility] Start: 09-27-2021 End: 09-27-[address] MARNIE SANCHEZ Facility:[facility] Start: 09-27-2021 End: 09-27-2021 ambulatory REY SOTELO Facility:[facility] Procedures Date Procedure Procedure Detail Performing Clinician Start: 06-24-2024 AUDITORY FUNCTION TESTS Irene Palmer CCC-A Work Phone: Start: 05-09-2023 Colonoscopy Irene Diaz CCC-A Work Phone: Start: 02-23-2022 PSA screening REY LITTLE Comment on above: Performed By: #### P [facility] #### [facility] [address] [place] [address] Dr. Sara Franco Plan of Treatment Date Care Activity Detail Author Start: 05-09-2033 Screening for malign ant neoplasm of colon [facility] Start: 07-29-2024 End: 07-29-2024 Patient encounter procedure 07/29/2024 2:20 PM EDT Office Visit [facility] [address] [place] [address] Cathryn Kyle MD [address] [place] [address] Arrived [facility] Comment on above: Arrived Start: 07-01-2024 End: 07-01-2024 Patient encounter procedure 07/01/2024 2:30 PM EDT Office Visit [facility] [address] [place] [address] Cathryn Kyle MD [address] [place] [address] [facility] Start: 06-24-2024 End: 06-24-2024 Clinical Support 06/24/2024 2:30 PM EDT Clinical Support [facility] [address] [place] [id number] Irene Palmer, [facility] [address] [facility] [place] [address] Arrived [facility] Comment on above: Arrived Start: 05-31-2024 Influenza vaccination Influenza Vacc ine (#1) [facility] Start: 01-14-2024 Patient referral [facility] Work Phone: Start: 1965 Screening for malign ant neoplasm of colon [facility] metabo lic 1999 panel - Serum or Plasma [facility] metabo [facility] 1999 panel - Serum or Plasma [facility] Patient referral [facility] Work Phone: [facility] Immunizations Immunization Date Immunization Notes Care Provider Fa cility 09-01-2021 COVID-19 mRNA, Comir yfn (Pfizer) [facility] Payers Date Payer Category Payer Self-pay 1998 Managed Care HMO (unspecified) [id number] 1966 Unknown [id number] 1966 Unknown [id number] 1966 Unknown [id number] [id number] 1966 Unknown [id number] 1966 Unknown [id number] 1966 Unknown [id number] 1966 Unknown [id number] 1959 Private Health Insurance W [id number] Unknown [id number] Social History Date Type Detail [facility] Work Phone: Start: 1965 Sex Assigned At Male [facility] Start: 02-05-2024 [facility] Start: 02-05-2024 Tobacco use and exposure Smokeless tobacco non-user [facility] Start: 04-01-2024 End: 07-29-2024 Alcoholic beverage intake Current drinker of alcohol (finding) [facility] Start: 04-01-2024 End: 07-29-2024 History of Social function [facility] Start: 04-01-2024 End: 07-29-2024 Tobacco use panel [facility] Start: 02-05-2024 Alcohol Comment socially [facility] Start: 1965 Sex assigned at Not on file [facility] Tobacco smoking stat [facility] Unknown if ever smoked [facility] Work Phone: Start: 03-04-2025 Sex Male (finding) [facility] History of Present illness Narrative 07-29-2024 Cathryn Kyle MD - 07/29/2024 2:20 PM EDT Note Date & Type Note Facility 07-29-2024 History of Presen t illness Narrative Subjective Patient ID: Nacho Elizalde is a 59 y.o. male who presents for Hearing Loss (Audio 06/24/24) Audio shows rodolfo severe notched HFSNHL. Family History Problem Relation Name Age of Onset Hyperlipidemia Mother Cancer Father Diabetes Sister Active Ambulatory Problems Diagnosis Date Noted Internal derangement of right shoulder 01/31/2024 Neck mass 01/31/2024 Hyperlipidemia (CMS/HCC) 01/31/2024 JA (obstructive sleep apnea) 01/31/2024 Resolved Ambulatory Problems Diagnosis Date Noted No Resolved Ambulatory Problems Past Medical History: Diagnosis Date Anxiety disorder Obstructive sleep apnea Past Surgical History: Procedure Laterality Date HAND SURGERY 2012 NECK SURGERY Right 03/24/2024 R/O neck mass -Timmis SHOULDER SURGERY Allergies Allergen Reactions Iodine Other Reaction(s): Unknown rash Current Outpatient Medications on File Prior to Visit Medication Sig Dispense Refill fenofibrate (Tricor) 145 MG tablet Take 145 mg by mouth in the morning. fenofibrate (Tricor) 145 MG tablet Take 145 mg by mouth 1 (one) time each day at the same time FLUoxetine (PROzac) 20 MG capsule Take 20 mg by mouth Daily simvastatin (Zocor) 20 MG tablet Take 20 mg by mouth 1 (one) time each day at the same time [DISCONTINUED] meloxicam (Mobic) 15 MG tablet Take by mouth Daily No current facility-administered medications on file prior to visit. Objective Last Recorded Vitals Vitals: 07/29/24 1423 BP: 122/76 ENT Physical Exam Constitutional Appearance: patient appears well-developed, well-nourished and well-groomed, Communication/Voice: communication appropriate for developmental age; vocal quality normal; Assessment/Plan Diagnoses and all orders for this visit: Bilateral tinnitus Pt has rodolfo tinnitus c/w rodolfo HFSNHL. Pattern c/w noise exposure. Advised to use hearing protection when able. Does not heed BONDS. Discussed communucation strategies. documented in this encounter [facility] History of Present illness Narrative 06-24-2024 Irene Palmer CCC-A - 06/24/2024 2:30 PM EDT Note Date & Type Note Facility 06-24-2024 History of Presen t illness Narrative History: Pt was referred to ENT because of hearing loss. Onset of hearing loss was gradual. Pt also reports constant bilateral tinnitus. History is positive for noise exposure. Otoscopic Exam: Ear canal clear and TM intact AU Pure Tone Audiometry Right Ear: Moderate to severe sensorineural hearing loss from 3K Hz - 4K Hz rising to moderate sensorineural hearing loss above 4K Hz Left Ear: Moderate to severe sensorineural hearing loss from 3K Hz - 4K Hz rising to moderate sensorineural hearing loss above 4K Hz Speech Audiometry Right SRT = 20 dB and word discrimination score at 60 dBHL (masked) = 100% Left SRT = 15 dB and word discrimination score at 60 dBHL (masked) = 100% Tympanometry Right Ear: Type A tympanogram Left Ear: Type A tympanogram documented in this encounter [facility] Hospital Discharge instructions 01-14-2024 Note Date & Type Note Facility 01-14-2024 Hospital Discharg e instructions Ambulatory OrdersReferral to ENT Time Frame: 01/14/24, Location: None Selected [facility] Work Phone: Evaluation note Note Date & Type Note Facility Evaluation note Diagnosis Onset Date Hyperlipidemia acute Mass of right side of neck a cute Screening PSA (prostate specific antigen) acute [facility] Work Phone: Evaluation note Note Date & Type Note Facility Evaluation note Diagnosis Bilateral tinnitus- Primary documented in this encounter [facility] Evaluation note Note Date & Type Note Facility Evaluation note Diagnosis Sensorineural hearing loss (SNHL) of both ears- Primary Tinnitus, bilateral Unspecified tinnitus documented in this encounter [facility] Evaluation note Note Date & Type Note Facility Evaluation note Diagnosis Onset Date Resolution Hyperlipidemia acute March 04, 2025 2:21pm Screening PSA (prostate specific antigen) acute March 04, 2025 2:21pm Well adult exam acute March 04, 2025 2:21pm [facility] Work Phone: Summary Purpose Family History Relationship Condition Age at Onset Recorded Date/T angela father Malignant neoplasm Unknown Unknown Not Specified Unknown sister Diabetes mellitus Unknown Relationship Condition Age at Onset Recorded Date/T angela father Malignant neoplasm Unknown Unknown mother Unknown sister Diabetes mellitus Unknown Advance Directives Advance Directive Response Recorded Date/ Time Advance Directives No January 13 2:22pm Chief Complaint and Reason for Visit Chief Complaint Lump on neck/ Blood Work Reason for Visit Hyperlipidemia Mass of right side of neck Screening PSA (prostate specific antigen) Chief Complaint Lump on neck/ Blood Work Unknown Reason for Visit Hyperlipidemia Mass of right side of neck Screening PSA (prostate specific antigen) Chief Complaint Admit Date Wellness March 04, 2025 2:21p m Reason for Visit Admit Date Hyperlipidemia March 04, 2025 2:21p m Screening PSA (prostate specific antigen ) March 04, 2025 2:21pm Well adult exam March 04, 2025 2:21p m Additional Source Comments (unrecognized sect ion and content) No Status Records FoundNo Status Records FoundNo Status Records Found INFORMATION SOURCE (unrecogn ized section and content) DATE CREATED AUTHOR 03/02/2022 [facility] DATE CREATED AUTHOR AUTHOR'S ORGANIZ ATION 03/26/2024 [facility] DATE CREATED AUTHOR AUTHOR'S ORGANIZ ATION 07/31/2024 [facility] EPIC Care Teams (unrecognized sec tion and content) Team Status: Active Member Role Status Dates Marnie Snachez MD Primary Care Provider Active Team Status: Inactive Member Role Status Dates Marnie Sanchez MD Primary Care Provide r, Attending Provider Active Start: January 14, 2024 End: January 14, 2024 Team Status: Active Member Role Status Dates Marnie Sanchez MD Primary Care Provide r, Attending Provider Active Start: January 18, 2024 Team Status: Inactive Member Role Status Dates Cathryn Kyle Jr, MD Attending Provider Active Start: March 24, 2024 End: March 24, 2024 Operations Research Analyst Relationship Specialty Start Date End Date Marnie Sanchez MD [address] [place] [address] PCP - General Family Medicine 01/22/24 Operations Research Analyst Relationship Specialty Start Date End Date Marnie Sanchez MD [address] [place] [id number] PCP - General Family Medicine 01/22/24 Operations Research Analyst Relationship Specialty Start Date End Date Marnie Sanchez MD [address] [place] [phone] PCP - General Family Medicine 01/22/24 Operations Research Analyst Relationship Specialty Start Date End Date Marnie Sanchez MD [address] [place] [phone] PCP - General Family Medicine 01/22/24 Team Status: Inactive Member Role Status Dates Marnie Sanchez MD Primary Care Provide r, Attending Provider Active Start: March 04, 2025 End: March 04, 2025 Goals (unrecognized section and content) Goals may be documented in a n alternate sectionGoals may be documented in an alternate sectionGoals may be documented in an alternate section Reason for Visit (unrecogniz ed section and content) Reason Comments Hearing Loss Audio 06/24/24 FOR RECORDS PERTAINING TO PATIENTS WHO ARE [...] BE BASED ON THE PRIMARY CLINICAL RECORDS. [employer] provides no warranty or guarantee of the accuracy or completeness of information in this document.
[2025-03-06 09:58] LABS: Alanine Aminotransferase 44 U/L (16-63); Albumin Globulin Ratio 1.2; Albumin Level 4.1 g/dL (3.4-5.0); Alkaline Phosphatase 73 U/L (46-116); Anion Gap 12.8; Aspartate Amino Transferase 26 U/L (15-37); BUN Creatinine Ratio 21.9; Calcium 9.3 mg/dL (8.5-10.1); Chloride 101 mmol/L (98-107); Estimated GFR (African America >60 (>=60 mL/min/1.73m^2); Estimated GFR (Non-African Ame >60 (>=60 mL/min/1.73m^2); Globulin 3.3 g/dL; Glucose 98 mg/dL (74-106); Potassium 3.8 mmol/L (3.5-5.1); Sodium 140 mmol/L (136-145); Total Protein 7.4 g/dL (6.4-8.2)
[2025-03-06 10:29] LABS: Prostate Specific Antigen Scrn 1.06 ng/mL (<=4.00)
[2025-03-06 12:03] LABS: Chol HDL Ratio 3.9; Cholesterol 180 mg/dL (<=200); HDL Cholesterol 46 mg/dL (40-60); Triglycerides 184 mg/dL (<=150); VLDL CHOLESTEROL 36.8 mg/dL
== END 2025-03-06 09:06 | disposition home or self-care (01) ==
PROVIDERS: PCP Family Medicine; Visit Provider Family Medicine
DX: Z00.00 Encounter for general adult medical examination without abnormal findings (principal); E78.5 Hyperlipidemia, unspecified; Z12.5 Encounter for screening for malignant neoplasm of prostate
CPT/HCPCS: 36415; 80053; 80061; G0103